=== PATIENT | female | born 1975 | race Caucasian/White ===

== ENCOUNTER → 2021-03-09 | Outpatient (CLI) | payer OTHER ==
[2021-03-09 17:17] LABS: URINE PREG TEST NEGATIVE (NEGATIVE)
[2021-03-09 17:23] LABS: INR 0.99; PROTHROMBIN TIME 13.5 SECONDS (12.7-14.5)
[2021-03-09 17:25] LABS: PARTIAL THROMBOPLASTIN TIME 29.2 SECONDS (25.9-37.0)
== END ==
LOC: M PLALAB 14:38
DX: Z01.812 Encounter for preprocedural laboratory examination (principal)

== ENCOUNTER → 2024-03-27 | Outpatient (CLI) | payer OTHER | LOC: M WHC 16:11 | PROVIDERS: ATTEND Student in an Organized Health Care Education/Training Program | DX: Z12.31 Encounter for screening mammogram for malignant neoplasm of breast (principal) ==